=== PATIENT | male | born 1975 | race Caucasian/White ===

== ENCOUNTER 2018-01-17 08:48 | Inpatient (IN) | payer OTHER ==
[2018-01-17] MEDS ORDERED: CEFAZOLIN/Water 2 GM/20 ML SYRINGE ONE (10:32)
[2018-01-17] MEDS ORDERED: Fentanyl 100 MCG/2 ML VIAL ONE (13:17)
[2018-01-17] MEDS ORDERED: Bupivacaine/Epinephrine 0.25% 30 ML VIAL ONE (13:19)
[2018-01-17] MEDS ORDERED: Midazolam HCl 2 mg/2 ml Vial ONE (13:28)
[2018-01-17] MEDS ORDERED: PROPOFOL 20 ML ONE (13:44)
[2018-01-17] MEDS ORDERED: Sodium Chloride 0.9% 30 ML ONE (14:46)
[2018-01-17] MEDS ORDERED: Meperidine HCl/PF 25 MG/ML VIAL SLOW IVP PRN (15:10)
[2018-01-17] MEDS ORDERED: HYDROmorphone 2 MG/ML VIAL SLOW IVP PRN (15:10)
[2018-01-17] MEDS ORDERED: Promethazine HCl 25 MG/ML VIAL IM PRN ×2 (15:10→16:16)
[2018-01-17] MEDS ORDERED: Morphine Sulfate 2 MG/ML SYRINGE SLOW IVP PRN (15:10)
[2018-01-17] MEDS ORDERED: Ketorolac Tromethamine 30 MG/ML VIAL IVP PRN (15:10)
[2018-01-17] MEDS ORDERED: Promethazine HCl 25 MG/ML VIAL SLOW IVP PRN (15:10)
[2018-01-17] MEDS ORDERED: Ondansetron HCl/PF 4 MG/2 ML Vial IVP PRN ×2 (15:10→16:16)
--- NOTE | 2018-01-17 15:21 | OP ---
DATE OF PROCEDURE: 01/17/2018 PREOPERATIVE DIAGNOSIS: Left axillary abscess. POSTOPERATIVE DIAGNOSIS: Necrotizing infection, left axilla, down to muscle. SURGEON: Dr. Sharif. ANESTHESIA: General. ESTIMATED BLOOD LOSS: 20 mL. COMPLICATIONS: None. SPECIMEN: Cultures taken for anaerobes and aerobes. PROCEDURE: Incision and drainage of deep left axillary abscess. TECHNIQUE: The patient was taken to the operating room and placed supine on the table. After genera l anesthetic was obtained, the left axilla was shaved, prepped, and draped in a sterile fashion. The small opening is enlarged slightly down into the subcutaneous pocket of purulence; however, on blunt dissection, the cavity goes much lower all the way down to the chest wall. This is a very deep woun d. All devitalized tissue was debrided. The wound was irrigated and packed using wet-to-dry saline- soaked Kerlix. Sterile dressings are placed. The patient will be admitted for further wound care.
[2018-01-17] MEDS ORDERED: hydrALAZINE 20 MG/ML VIAL ONE (15:26)
--- NOTE | 2018-01-17 15:59 | RAD ---
ONE VIEW CHEST: HISTORY: Line placement. COMPARISON: None. FINDINGS: SINGLE VIEW CHEST: Normal cardiac silhouette. Pulmonary vessels and hilum are normal. Costophrenic angles are clear. Right-sided internal jugular central venous catheter with the distal tip projecting in the expected r egion of superior vena cava. No pneumothorax or osseous abnormalities. IMPRESSION: No pneumothorax. POS: [facility]
[2018-01-17] MEDS ORDERED: hydrALAZINE 20 MG/ML VIAL SLOW IVP PRN (16:16)
[2018-01-17] MEDS ORDERED: Calcium Carbonate 500 MG ChewTAB PO PRN (16:16)
[2018-01-17] MEDS ORDERED: Mag-Al 1200 mg/1200 mg/30 ML UDCUP PO PRN (16:16)
[2018-01-17] MEDS ORDERED: Morphine 4 MG/ML VIAL SLOW IVP PRN (16:16)
[2018-01-17] MEDS ORDERED: HYDROcodone/Acetaminophen 10/325 mg Tablet PO PRN ×2 (16:16)
[2018-01-17] MEDS ORDERED: Dextrose 5% in Water 1,000 ML IV PRN (16:16)
[2018-01-17] MEDS ORDERED: Dextrose 50% Abboject 50 ML SYRINGE SLOW IVP PRN (16:16)
[2018-01-17] MEDS ORDERED: PROPOFOL 200 MG/20 ML VIAL ONE (16:40)
[2018-01-17] MEDS ORDERED: Ondansetron HCl/PF 4 MG/2 ML Vial ONE (16:40)
[2018-01-17] MEDS ORDERED: Lidocaine 1% PF 5 ML VIAL ONE (16:40)
--- NOTE | 2018-01-17 16:48 | OP ---
DATE OF PROCEDURE: 01/17/2018 PREOPERATIVE DIAGNOSES: Venous insufficiency, necrotizing infection, left axilla, need for IV antibi otics. POSTOPERATIVE DIAGNOSES: Venous insufficiency, necrotizing infection, left axilla, need for IV antib iotics. PROCEDURE PERFORMED: Right IJ central line. SURGEON: Ruiz Sharif M.D. ANESTHESIA: General. ESTIMATED BLOOD LOSS: Minimal. COMPLICATIONS: None. SPECIMEN: None. FINDINGS: None. TECHNIQUE: The right neck was shaved, prepped and draped in a sterile fashion. Local anesthetic inf iltrated over the right internal jugular vein. Internal jugular vein cannulated using a 22-gauge fin ana needle followed by a Seldinger needle. Wire was passed into the superior vena cava without tensi on. A small cathy was made at the wire entrance site. The wire was used to guide to dilate the inter nal jugular vein. The triple-lumen catheter was threaded to 16 cm, sewn to the neck using closed liss k. Sterile dressings were placed. All ports were flushed and [place] blood without difficulty. It was flushed with a saline solution. The patient en route to recovery in stable condition.
[2018-01-17] MEDS ORDERED: Vancomycin HCl 1 GM in Premix Bag 1 BAG IVPB SCH (17:00)
[2018-01-17] MEDS ORDERED: Vancomycin HCl 1.5 GM in Sodium Chloride 0.9% 250 ML 300 ML IVPB SCH (17:15)
[2018-01-17] MEDS: Sodium Chloride 0.9% 1,000 ML IV SCH (17:23)
[2018-01-17 17:31] VITALS: BMI 31.4
[2018-01-17] MEDS ORDERED: Piperacillin/Tazobactam 3.375 GM in Sodium Chloride 0.9% 100 ML IVPB SCH (18:00)
[2018-01-17 18:53] LABS: Anion Gap 15 mmol/L (10-20); BUN (Urea Nitrogen) 19 mg/dL (8.9-20.6); Calc. Creatinine Clearance 145 mL/min (70-130); Calcium 9.2 mg/dL (7.8-10.44); Carbon Dioxide 25 mmol/L (22-29); Chloride 101 mmol/L (98-107); Estimated GFR-MDRD 82; Glucose 99 mg/dL (70-105); Potassium 3.9 mmol/L (3.5-5.1); Sodium 137 mmol/L (136-145)
[2018-01-17] MEDS ORDERED: Pantoprazole 40 MG VIAL IVP SCH (21:00)
[2018-01-17] MEDS ORDERED: Famotidine/PF 20 mg/2ml Vial SLOW IVP SCH (21:00)
[2018-01-17] MEDS: Famotidine 20 MG TAB PO SCH (21:20)
[2018-01-17] MEDS: Vancomycin HCl 1.5 GM in Sodium Chloride 0.9% 250 ML 300 ML IVPB SCH (23:28)
[2018-01-18] MEDS: Piperacillin/Tazobactam 3.375 GM in Sodium Chloride 0.9% 100 ML IVPB SCH ×4 (02:21→20:38)
[2018-01-18] MEDS: Sodium Chloride 0.9% 1,000 ML IV SCH ×3 (02:21→10:36)
[2018-01-18 05:47] LABS: #Basophils 0.1 thou/uL (0.0-0.2); #Eosinphils 0.4 thou/uL (0.0-0.7); #Lymphocytes 1.5 thou/uL (1.20-3.40); #Monocytes 1.2 thou/uL (0.11-0.59); #Neutrophils 8.7 thou/uL (1.40-6.50); %Basophils 0.4 % (0.0-1.0); %Eosinophils 3.1 % (0.0-10.0); %Lymphocytes 12.4 % (21.0-51.0); %Monocytes 10.2 % (0.0-10.0); %Neutrophils 73.9 % (42.0-75.0); Hemoglobin 12.1 g/dL (14.0-18.0); Mean Corpuscular HGB CONC 32.3 g/dL (32.0-36.0); Mean Corpuscular Hemoglobin 31.6 pg (27.0-31.0); Mean Corpuscular Volume 97.9 fl (80.0-94.0); Mean Platelet Volume 6.8 fL (7.4-10.4); Platelet Count 247 thou/uL (130-400); RBC Distribution Width 11.9 % (11.5-14.5); Red Blood Cell (RBC) Count 3.83 mill/uL (4.70-6.10); White Blood Cell (WBC) Count 11.8 thou/uL (4.8-10.8)
[2018-01-18] MEDS: Vancomycin HCl 1.5 GM in Sodium Chloride 0.9% 250 ML 300 ML IVPB SCH ×2 (08:31→17:12)
[2018-01-18] MEDS: Famotidine 20 MG TAB PO SCH ×2 (08:35→20:37)
--- NOTE | 2018-01-18 08:56 | PDOC.GSPN ---
Surgery Progress Note: Subj - Subjective Patient reports: no new complaints Surgery Progress Note: Obj - Vital signs Vital signs: Vital Signs - Most Recent Temp Pulse Resp BP Pulse Ox 98.3 F 84 16 128/82 95 01/18/18 07:32 01/18/18 07:32 01/18/18 07:32 01/18/18 07:32 01/18/18 07:32 - Physical Exam General: no distress Cardiovascular: regular rate and rhythm Respiratory: clear to auscultation Wound: dressing clean,dry,intact Surgery Progress Note: Results - Labs Result Diagrams: 01/18/18 05:38 01/17/18 18:22 Lab results: Laboratory Results - last 24 hr 01/18/18 05:38 WBC 11.8 H RBC 3.83 L Hgb 12.1 L Hct 37.5 L MCV 97.9 H MCH 31.6 H MCHC 32.3 RDW 11.9 Plt Count 247 MPV 6.8 L Neutrophils % 73.9 Lymphocytes % 12.4 L Monocytes % 10.2 H Eosinophils % 3.1 Basophils % 0.4 Neutrophils # 8.7 H Lymphocytes # 1.5 Monocytes # 1.2 H Eosinophils # 0.4 Basophils # 0.1 Surgery Progress Note: A/P - Problem (1) Axillary abscess Current Visit: Yes Code(s): L02.419 - CUTANEOUS ABSCESS OF LIMB, UNSPECIFIED Status: Acute Assessment and Plan: Will arrange for placement of wound vac and outpatient wound care. Await cultures. Continue vanc, zosyn for now
[2018-01-18] MEDS ORDERED: Fentanyl 100 MCG/2 ML VIAL SLOW IVP PRN (08:57)
[2018-01-18] MEDS: Morphine 4 MG/ML VIAL SLOW IVP PRN (10:33)
[2018-01-18 16:14] LABS: Vancomycin, Trough 14.2 ug/mL
[2018-01-19] MEDS: Vancomycin HCl 1.5 GM in Sodium Chloride 0.9% 250 ML 300 ML IVPB SCH ×3 (00:54→16:00)
[2018-01-19] MEDS: Sodium Chloride 0.9% 1,000 ML IV SCH ×2 (03:55→17:19)
[2018-01-19] MEDS: Piperacillin/Tazobactam 3.375 GM in Sodium Chloride 0.9% 100 ML IVPB SCH ×4 (03:55→20:24)
[2018-01-19] MEDS: Famotidine 20 MG TAB PO SCH ×2 (08:33→20:25)
--- NOTE | 2018-01-19 10:40 | PRG ---
DATE OF SERVICE: 01/19/2018 SUBJECTIVE: Mr. Willis is doing well. Pain is controlled, actually improved now. PHYSICAL EXAMINATION: He is afebrile. Vital signs are stable. His abdomen is soft, nontender. Wou nd VAC. Cultures show MRSA, sensitive to clindamycin, doxycycline, gentamicin, Zyvox, rifampin, tetracycline, Bactrim. ASSESSMENT: Postop I&D, left axillary abscess. PLAN: Arrange for home VAC, transitioned to oral antibiotics after discharge.
[2018-01-20] MEDS: Vancomycin HCl 1.5 GM in Sodium Chloride 0.9% 250 ML 300 ML IVPB SCH ×2 (00:20→08:31)
[2018-01-20] MEDS: Piperacillin/Tazobactam 3.375 GM in Sodium Chloride 0.9% 100 ML IVPB SCH ×2 (03:14→08:31)
[2018-01-20] MEDS: Famotidine 20 MG TAB PO SCH ×2 (08:31→22:50)
--- NOTE | 2018-01-20 09:46 | PRG ---
DATE OF SERVICE: 01/20/2018 SUBJECTIVE: He has no complaints. He is afebrile. Vital signs are stable. Wound VAC is intact. C ultures show MRSA, but sensitive to some oral antibiotics. ASSESSMENT: Left axillary abscess, status post incision and drainage with wound VAC on vancomycin inderjit Solorio. PLAN: Likely could be discharged tomorrow when home VAC is approved. To continue dressing changes a s an outpatient. Could be sent home on either Bactrim, Zyvox or clindamycin.
[2018-01-20] MEDS: Morphine 4 MG/ML VIAL SLOW IVP PRN (10:20)
[2018-01-20] MEDS: Sodium Chloride 0.9% 1,000 ML IV SCH ×2 (10:28→23:46)
[2018-01-20] MEDS: Clindamycin 150 MG CAP PO SCH ×3 (14:13→23:40)
[2018-01-20] MEDS: Sulfameth/Trimethoprim DS 800-160mg TAB PO SCH (22:50)
[2018-01-21] MEDS: Clindamycin 150 MG CAP PO SCH ×2 (05:28→12:48)
[2018-01-21] MEDS: Famotidine 20 MG TAB PO SCH (10:11)
[2018-01-21] MEDS: Sulfameth/Trimethoprim DS 800-160mg TAB PO SCH (10:11)
--- NOTE | 2018-01-21 12:12 | DIS ---
DATE OF ADMISSION: 01/17/2018 DATE OF DISCHARGE: 01/21/2018 ADMISSION DIAGNOSES: Left axillary abscess. DISCHARGE DIAGNOSIS: Left axillary abscess. PROCEDURES: I and D left abscess by Dr. Sharif without complication. CONDITION AT DISCHARGE: Improved. STAFF: Dr. Ruiz Sharif. HOSPITAL COURSE: See hospital chart for details of hospitalization.
[2018-01-21] MEDS: Sodium Chloride 0.9% 1,000 ML IV SCH (12:49)
[2018-01-21 16:08] VITALS: BP 160/94; TEMP 98.4
== END 2018-01-21 16:39 | disposition home or self-care (01) | DRG 581 ==
LOC: SDC 08:48 → SURG B 16:12
PROVIDERS: ADMIT Surgery; ATTEND Surgery
PROC: 0J9F0ZZ Drainage of Left Upper Arm Subcutaneous Tissue and Fascia, Open Approach (ICD-10-PCS; principal; 2018-01-17)
PROC: 05HM33Z Insertion of Infusion Device into Right Internal Jugular Vein, Percutaneous Approach (ICD-10-PCS; 2018-01-17)
DX: L02.412 Cutaneous abscess of left axilla (principal); B95.62 Methicillin resistant Staphylococcus aureus infection as the cause of diseases classified elsewhere
CPT/HCPCS: 36415; 36416; 71045; 80048; 80202; 85025; 87070; 87077; 87186; 87205; A4216; C9113; J0360; J2001; J2250; J2270; J2405; J2543; J2704; J3010; J3370; J7050

== ENCOUNTER 2018-01-23 15:02 | Outpatient (CLI) | payer OTHER ==
[~2018-01-23 15:02] MED LIST: Sodium Chloride 0.9% 15 ML NEB ONE
== END 2018-01-23 15:03 | disposition home or self-care (01) ==
LOC: WCC 15:02
PROVIDERS: ATTEND Family Medicine
DX: T81.89XD Other complications of procedures, not elsewhere classified, subsequent encounter (principal); Z98.890 Other specified postprocedural states
CPT/HCPCS: 97605; A4218

== ENCOUNTER 2018-01-27 07:58 | Outpatient (CLI) | payer OTHER ==
[2018-01-27] MEDS ORDERED: Lidocaine 4% Topical Sol 50 ML BOT ONE (14:54)
[2018-01-27] MEDS ORDERED: Sodium Chloride 0.9% 15 ML NEB ONE (14:54)
== END 2018-01-27 07:59 | disposition home or self-care (01) ==
LOC: WCC 07:58
PROVIDERS: ATTEND Family Medicine
DX: T81.89XD Other complications of procedures, not elsewhere classified, subsequent encounter (principal)
CPT/HCPCS: 97605; A4218; J2001

== ENCOUNTER 2018-01-30 13:46 | Outpatient (CLI) | payer OTHER ==
[~2018-01-30 13:46] MED LIST changes: +Lidocaine 4% Topical Sol 50 ML BOT ONE
== END 2018-01-30 13:47 | disposition home or self-care (01) ==
LOC: WCC 13:46
PROVIDERS: ATTEND Family Medicine
DX: T81.89XD Other complications of procedures, not elsewhere classified, subsequent encounter (principal); Z98.890 Other specified postprocedural states
CPT/HCPCS: 97605; A4218; J2001

== ENCOUNTER 2018-02-03 13:27 | Outpatient (CLI) | payer OTHER ==
[~2018-02-03 13:27] MED LIST changes: -Lidocaine 4% Topical Sol 50 ML BOT ONE
== END 2018-02-03 13:28 | disposition home or self-care (01) ==
LOC: WCC 13:27
PROVIDERS: ATTEND Family Medicine
DX: T81.89XD Other complications of procedures, not elsewhere classified, subsequent encounter (principal)
CPT/HCPCS: 97605; A4218

== ENCOUNTER 2018-02-06 10:27 | Outpatient (CLI) | payer OTHER ==
--- NOTE | 2018-02-06 12:46 | HP ---
DATE OF SERVICE: 02/06/2018 HISTORY OF PRESENT ILLNESS: Mr. Ferdinand Willis is a very pleasant 43-year-old gentleman, who present s to the Wound Center for evaluation of a wound of the left axilla subsequent to incision and drainag e of a deep left axillary abscess. The patient underwent the preceding procedure by Dr. Ruiz rowell on 01/17/2018. Negative pressure therapy was initiated subsequent to surgery, and upon discharge f [facility], the patient was referred to the Wound Center for assistance wi th dressing changes of the wound VAC. The patient was discharged to home on Bactrim DS. PAST MEDICAL HISTORY: Negative for any chronic medical conditions including diabetes mellitus, hyper tension, or coronary artery disease. PAST SURGICAL HISTORY: 1. Incision and drainage of deep left axillary abscess on 01/17/[address] Ruiz Sharif. 2. Extraction of 4 wisdom teeth, remote. MEDICATIONS: Bactrim DS. ALLERGIES: No known diagnosed allergies. SOCIAL HISTORY: Negative for tobacco use. The patient admits to only the rare consumption of alcoho l. FAMILY HISTORY: Negative for diabetes mellitus or coronary artery disease. PHYSICAL EXAMINATION: VITAL SIGNS: Temperature 98.4, pulse 85, respirations 17, blood pressure 158/102. GENERAL: A 43-year-old gentleman sitting on table in examination room, in no acute distress. HEENT: Normocephalic, atraumatic. NECK: No nuchal rigidity. CHEST: Clear to auscultation. CARDIAC: Regular rate and rhythm. ABDOMEN: Soft. EXTREMITIES: A left axillary wound is present which measures approximately 2.5 x 1.9 cm. Granulatio n tissue is present within the wound margins. Necrotic and nonviable tissue present within the wound margins and was debrided with an excisional full-thickness debridement with the use of scissors. No purulent drainage is associated with the wound. No erythema of the skin surrounding the wound is pr esent. No maceration of the skin of the periwound is noted. NEUROLOGIC: Grossly nonfocal. ASSESSMENT AND PLAN: Left axillary wound as described above. Negative pressure therapy will be cont inued with dressing changes of the wound VAC here in the Wound Center. The patient is to continue Ba ctrim DS as previously prescribed. The wound VAC will be placed to settings of 125 mmHg, continuous today. The patient will be seen by Dr. Sharif in 1 week. I will see Lazaro again in two weeks.
== END 2018-02-06 10:28 | disposition home or self-care (01) ==
LOC: WCC 10:27
PROVIDERS: ATTEND Family Medicine
DX: S41.102D Unspecified open wound of left upper arm, subsequent encounter (principal)

== ENCOUNTER 2018-02-10 13:43 | Outpatient (CLI) | payer OTHER | END 2018-02-10 13:44 | disposition home or self-care (01) | LOC: WCC 13:43 | PROVIDERS: ATTEND Family Medicine | DX: T81.89XD Other complications of procedures, not elsewhere classified, subsequent encounter (principal) | CPT/HCPCS: 97605; A4218 ==

== ENCOUNTER 2018-02-13 14:38 | Outpatient (CLI) | payer OTHER ==
[2018-02-13] MEDS ORDERED: Sodium Chloride 0.9% 15 ML NEB ONE ×2 (15:30→15:31)
== END 2018-02-13 14:39 | disposition home or self-care (01) ==
LOC: WCC 14:38
PROVIDERS: ATTEND Family Medicine
DX: T81.89XD Other complications of procedures, not elsewhere classified, subsequent encounter (principal)
CPT/HCPCS: 97605; A4218

== ENCOUNTER 2018-02-27 13:56 | Outpatient (CLI) | payer OTHER ==
--- NOTE | 2018-02-27 15:11 | PRG ---
DATE OF SERVICE: 02/27/2018 HISTORY: Mr. Ferdinand Willis is a very pleasant 43-year-old gentleman who presents to the Wound Cent er for evaluation of a wound of the left axilla subsequent to incision and drainage of a deep left ax illary abscess. The patient underwent the preceding procedure by Dr. Melchor 01/17/2018. Negative pre ssure therapy was initiated subsequent to surgery and upon discharge from [facility], the patient was referred to the Wound Center for assistance with dressing changes of the woun d VAC. The patient was discharged to home on Bactrim DS. The patient has completed a course of nega tive pressure therapy and now is performing dressing changes of gauze for his wound. PHYSICAL EXAMINATION: VITAL SIGNS: Temperature 98.1, pulse 101, respirations 16, blood pressure 181/100. EXTREMITIES: A left axillary wound is still present. The wound is granulating. Nonviable tissue pr esent within the wound margins was debrided with an excisional full-thickness debridement. No purule nt drainage is associated with the wound. No erythema of the skin surrounding the wound is present. No maceration of the skin of the periwound is noted. ASSESSMENT AND PLAN: Left axillary wound as described above. The patient has been instructed to con tinue dressing changes of gauze secured with tape or bordered gauze until the wound has healed comple tely. The wound has almost healed completely and Mr. Willis will be discharged from clinic today with followup on a p.r.n. basis.
== END 2018-02-27 13:57 | disposition home or self-care (01) ==
LOC: WCC 13:56
PROVIDERS: ATTEND Family Medicine
DX: T81.89XD Other complications of procedures, not elsewhere classified, subsequent encounter (principal)
CPT/HCPCS: 11042